=== PATIENT | female | born 1990 | race Hispanic/Latino ===

== ENCOUNTER 2019-02-10 10:42 | Outpatient (CLI) | payer OTHER ==
--- NOTE | 2019-02-10 12:27 | ULT ---
PELVIC ULTRASOUND: HISTORY: Pelvic pain. IUD placed in 2017. Irregular menses since last year. COMPARISON: None. TECHNIQUE: Transabdominal and endovaginal imaging of the pelvis is performed. Ovaries are interrogated with gra y scale, color flow, Doppler imaging, and spectral waveform analysis. Uterus is identified measuring 8.5 x 4.2 x 4.1 cm. No obvious myometrial masses. Echogenicity withi n the endometrium, compatible with the patient's history of intrauterine device placement. Limited e valuation of the endometrium secondary to the presence of IUD. Both ovaries have a normal echotexture. The right ovary measures 3.7 x 1.7 x 1.8 cm. The left ovary measures 3.1 x 2.3 x 1.8 cm. Incidental nabothian cysts are noted. There is no free fluid. OVARIAN DOPPLER: Vascular flow to the left and right ovary. IMPRESSION: Limited evaluation of the endometrium due to the presence of the intrauterine device. Otherwise, unr emarkable exam. POS: [facility]
== END 2019-02-10 10:43 | disposition home or self-care (01) ==
LOC: BICULT 10:42
PROVIDERS: ATTEND Family Medicine
DX: R10.2 Pelvic and perineal pain (principal); Z97.5 Presence of (intrauterine) contraceptive device
CPT/HCPCS: 76856

== ENCOUNTER 2021-06-06 09:40 | Emergency (ER) | payer MEDICAID ==
[2021-06-06 23:05] LABS: SARS-CoV-2 PCR by NAA DETECTED (NotDetected)
== END 2021-06-06 15:21 | disposition home or self-care (01) ==
LOC: ERS 09:40
DX: U07.1 COVID-19 (principal)
CPT/HCPCS: 71045; 93005; U0003; U0005